=== PATIENT | male | born 1970 | race Caucasian/White ===

== ENCOUNTER 2017-10-19 19:54 | Observation (INO) | payer OTHER ==
[2017-10-19] MEDS ORDERED: Iohexol 350 MG/100 ML VIAL ONE (21:04)
[2017-10-19 22:31] VITALS: BMI 40.3
[2017-10-19] MEDS ORDERED: Labetalol 5 mg/ml Inj 20ML ONE (22:35)
[2017-10-19] MEDS ORDERED: Labetalol 5 mg/ml Inj 20ML IV STA (22:35)
[2017-10-19 22:52] LABS: INR 1.07 (0.93-1.08); PARTIAL THROMBOPLASTIN TIME 36.8 Seconds (25.1-36.5); PROTHROMBIN TIME 12.2 SECONDS (9.4-12.5)
[2017-10-19 22:53] LABS: BLOOD UREA NITROGEN 12 mg/dL (7-21); GFR AFRICAN-AMERICAN > 60; GFR NON-AFRICAN AMERICAN > 60
[2017-10-19 22:54] LABS: ALB/GLOB RATIO 1.4 (1.1-1.8); ALBUMIN 4.5 g/dL (3.0-4.8); ALT/SGPT 80 U/L (7-56); AST/SGOT 54 U/L (17-59); CALCIUM 9.3 mg/dL (8.4-10.5)
[2017-10-19 22:55] LABS: HEMOGLOBIN 15.4 g/dL (14.0-18.0); MEAN CELL VOLUME 86.9 fl (80.0-105.0); MEAN CORPUSCULAR HEMOGLOBIN 31.6 pg (25.0-35.0); MEAN CORPUSCULAR HGB CONC 36.3 g/dl (31.0-37.0); RBC 4.88 10^6/uL (3.5-6.1); TROPONIN I < 0.01 ng/mL; WHITE BLOOD COUNT 6.6 10^3/ul (4.5-11.0)
[2017-10-19 22:56] LABS: MEAN PLATELET VOLUME 10.5 fl (7.0-11.0); RED CELL DISTRIBUTION WIDTH 12.9 % (11.5-14.5)
[2017-10-19 23:04] LABS: URINE COLOR YELLOW (YELLOW)
[2017-10-19 23:05] LABS: PH,URINE 6.5 (4.7-8.0); URINE APPEARANCE CLEAR (CLEAR); URINE BILIRUBIN NEGATIVE (NEGATIVE); URINE BLOOD NEGATIVE (NEGATIVE); URINE GLUCOSE (UA) NEGATIVE (NEGATIVE); URINE LEUKOCYTE ESTERASE NEGATIVE Leu/uL (NEGATIVE); URINE PROTEIN NEGATIVE mg/dL (<30 mg/dL); URINE UROBILINOGEN 0.2 E.U./dL (<1 E.U./dL)
--- NOTE | 2017-10-20 00:40 | CP.PCM.HP ---
<Gallo Osei - Last Filed: 10/20/17 05:54> History of Present Illness - History of Present Illness History of Present Illness: This patient is a 46 year old with a PMHx of HLD, HTN, Anxiety, unspecified benign brain tumor (possible pituitary adenoma), and medication non-compliance who presents with what seems to be described as TIA symptoms. Patient states that around 7pm on 10/20/2017 he had a sudden onset of tightness from the neck, up. He states it felt like he had an "outer body experience" and like had been drinking. He also describes the feeling as if 100lbs was sitting at the top of his head. During this episode he states he was unable to talk and then when he gained his speech back, it was slurred. His speech deficit lasted for less than 5 minutes. He took 2 81mg aspirins, vitamins, and his anti-hypertensive medications and then called the ambulance himself. Patient is somewhat of a poor historian. Of note, patient states that for the past 7-8 years and 2-3x per year patient experiences episodes of sharp chest pain that resolves with aspirin. Today, patient denied any chest pain, palpitations, vision changes, headache, fever, chills, abdominal pain, nausea, vomiting, changes in bowel habits or urinary symptoms. Patient did admit to mild dizziness. ROS: As stated above. PMHx: HLD, HTN, Anxiety, unspecified benign brain tumor (possible pituitary adenoma), and medication non-compliance PSHx: Denies Allergies: Atenolol SocialHx: 1.5PPD for 31 years. Denies Alcohol or illicit drug use. Lives at home, unemployed, takes care of disabled child and Hos: Denies FamHx: Mother - Hypertension Meds: Reviewed Present on Admission - Present on Admission Any Indicators Present on Admission: No Review of Systems - Review of Systems All systems: reviewed and no additional remarkable complaints except (As per HPI ) Review of Systems: As per HPI Past Patient History - Tetanus Immunizations Tetanus Immunization: Unknown - Past Social History Smoking Status: Heavy Smoker > 10 Cigarettes Daily - CARDIAC Hx Hypertension: Yes - PULMONARY Hx Asthma: Yes Hx Sleep Apnea: Yes - NEUROLOGICAL Hx Migraine: Yes Hx Syncope: Yes - MUSCULOSKELETAL/RHEUMATOLOGICAL Hx Musculoskeletal Disorders: No - GASTROINTESTINAL Hx Gastrointestinal Disorders: No - GENITOURINARY/GYNECOLOGICAL Hx Genitourinary Disorders: No - PSYCHIATRIC Hx Psychophysiologic Disorder: No Hx Substance Use: No Meds Allergies/Adverse Reactions: Allergies Allergy/AdvReac Type Severity Reaction Status Date / Time atenolol Allergy SWELLING Verified 10/19/17 22:31 Physical Exam - Constitutional Appears: Well, Non-toxic, No Acute Distress - Head Exam Head Exam: ATRAUMATIC, NORMAL INSPECTION, NORMOCEPHALIC - Eye Exam Eye Exam: EOMI, Normal appearance, PERRL. absent: Scleral icterus - ENT Exam ENT Exam: Mucous Membranes Moist, Normal Oropharynx - Neck Exam Neck exam: Negative for: Lymphadenopathy, Thyromegaly - Respiratory Exam Respiratory Exam: Clear to Auscultation Bilateral, NORMAL BREATHING PATTERN - Cardiovascular Exam Cardiovascular Exam: RRR, +S1, +S2. absent: JVD - GI/Abdominal Exam GI & Abdominal Exam: Normal Bowel Sounds, Soft. absent: Organomegaly, Tenderness - Extremities Exam Extremities exam: Positive for: normal capillary refill, normal inspection, pedal pulses present. Negative for: pedal edema - Neurological Exam Neurological exam: Alert, CN II-XII Intact, Normal Gait, Oriented x3, Reflexes Normal Additional comments: No motor or sensory deficit. - Psychiatric Exam Psychiatric exam: Anxious - Skin Skin Exam: Dry, Intact, Normal Color, Warm Results - Labs Result Diagrams: 10/19/17 20:49 10/19/17 20:49 Labs: Laboratory Results - last 24 hr 10/19/17 10/19/17 10/19/17 20:49 20:49 20:49 WBC 6.6 RBC 4.88 Hgb 15.4 Hct 42.4 MCV 86.9 MCH 31.6 MCHC 36.3 RDW 12.9 Plt Count 180 MPV 10.5 PT 12.2 INR 1.07 APTT 36.8 H Sodium 142 Potassium 3.6 Chloride 103 Carbon Dioxide 25 Anion Gap 18 BUN 12 Creatinine 0.7 L Est GFR ( Amer) > 60 Est GFR (Non-Af Amer) > 60 Random Glucose 142 H Calcium 9.3 Total Bilirubin 0.3 AST 54 ALT 80 H Alkaline Phosphatase 67 Lactate Dehydrogenase 582 Total Creatine Kinase 155 Troponin I < 0.01 Total Protein 7.7 Albumin 4.5 Globulin 3.2 Albumin/Globulin Ratio 1.4 Urine Color Urine Appearance Urine pH Ur Specific [place] Urine Protein Urine Glucose (UA) Urine Ketones Urine Blood Urine Nitrate Urine Bilirubin Urine Urobilinogen Ur Leukocyte Esterase 10/19/17 20:49 WBC RBC Hgb Hct MCV MCH MCHC RDW Plt Count MPV PT INR APTT Sodium Potassium Chloride Carbon Dioxide Anion Gap BUN Creatinine Est GFR ( Amer) Est GFR (Non-Af Amer) Random Glucose Calcium Total Bilirubin AST ALT Alkaline Phosphatase Lactate Dehydrogenase Total Creatine Kinase Troponin I Total Protein Albumin Globulin Albumin/Globulin Ratio Urine Color Yellow Urine Appearance Clear Urine pH 6.5 Ur Specific [place] 1.010 Urine Protein Negative Urine Glucose (UA) Negative Urine Ketones Negative Urine Blood Negative Urine Nitrate Negative Urine Bilirubin Negative Urine Urobilinogen 0.2 Ur Leukocyte Esterase Negative Assessment & Plan - Assessment and Plan (Free Text) Assessment: 46 year old with a PMHx of HLD, HTN, Anxiety, unspecified benign brain tumor ( possible pituitary adenoma), and medication non-compliance admitted for evaluation and treatment of TIA Plan: TIA Code Stroke Called in the E.D during EMR Downtime. NIHSS stroke scale in ED [address] James at 20:32. CT of the head was negative. Neurology consulted by E.D physician and recommended aspirin and plavix which was given. Patient also got IV labetolol in ED. Neurology Consulted (Dr. Khoury) ECHO | Carotid Dopplers HgBA1C: PENDING Trop I - NEGATIVE Lipid Panel: Triglycerides - 515 | Cholesterol - 227 | LDL - 138 | HDL - 31 TSH/Free T4 - Within Normal Limits Low Fall Protocol Neuro Checks Q2H for 24 hours Seizure Precautions Swallow Eval ASA/Plavix Daily Stat Lipitor Hx of HTN Home Enalapril not in formulary Start Lisinopril 10 PO Daily Hx of HLD Home Gemfibrozil 600mg PO Daily Hx of unspecified tumor (Possibly pituitary adenoma) Patient has visit in EMR for Benign Neoplasm Head MRI/CT taken in the past shows no evidence of tumor. Patient's PMD should be called in AM. Proph Lovenox Protonix Patient seen and discussed with Attending Gallo Osei, PGY-1 - Date & Time Date: 10/19/17 Time: 11:50 NIHSS Scale (Isabela) Time Performed: 11:50 - How Severe is the Stoke Baseline Level of Consciousness: 0=Alert LOC to Questions: 0=Both comments correct LOC to commands: 0=Obeys both correctly Best Gaze: 0=Normal Visual: 0=No visual loss Facial: 0=Normal Motor Arm - Left: 0=No drift Motor Arm - Right: 0=No drift Motor Leg - Left: 0=No drift Motor Leg - Right: 0=No drift Limb Ataxia: 0=Absent Sensory: 0=Normal Best Language: 0=No aphasia Dysarthia: 0=Normal articulation Extinction & Inattention (Neglect): 0=Normal, no object Score: 0 Risk Level: No Stroke Risk <Breanna kAhtar - Last Filed: 10/20/17 06:49> Results - Vital Signs Recent Vital Signs: Last Vital Signs Temp Pulse 89 10/20/17 03:00 Resp 18 10/20/17 03:00 BP 132/90 10/20/17 03:00 Pulse Ox 100 10/20/17 03:00 - Labs Result Diagrams: 10/20/17 05:00 10/20/17 05:00 Labs: Laboratory Results - last 24 hr 10/20/17 10/20/17 05:00 05:00 WBC 9.5 D RBC 5.09 Hgb 16.0 Hct 44.6 MCV 87.6 MCH 31.4 MCHC 35.9 RDW 13.1 Plt Count 203 MPV 10.4 Gran % 62.2 Lymph % (Auto) 28.4 [place] % (Auto) 6.9 H Eos % (Auto) 2.3 Baso % (Auto) 0.2 Gran # 5.88 Lymph # (Auto) 2.7 [place] # (Auto) 0.7 H Eos # (Auto) 0.2 Baso # (Auto) 0.02 Sodium 144 Potassium 3.9 Chloride 104 Carbon Dioxide 25 Anion Gap 19 BUN 12 Creatinine 0.8 Est GFR ( Amer) > 60 Est GFR (Non-Af Amer) > 60 Random Glucose 94 Calcium 10.4 Total Bilirubin 0.4 AST 48 ALT 78 H Alkaline Phosphatase 77 Total Protein 7.7 Albumin 4.6 Globulin 3.1 Albumin/Globulin Ratio 1.5 Attending/Attestation - Attestation I have personally seen and examined this patient.: Yes I have fully participated in the care of the patient.: Yes I have reviewed all pertinent clinical information: Yes Notes (Text): 10/20/17 06:49 Agree with documentation and orders placed
[2017-10-20] MEDS ORDERED: Albuterol-Ipratrop 3 mg / 0.5 (3 ml) UD IH PRN (00:52)
[2017-10-20 01:43] LABS: HDL CHOLESTEROL 31 mg/dL (29-60)
[2017-10-20 01:53] LABS: LDL CHOLESTEROL 138 mg/dL (0-129)
[2017-10-20 02:18] LABS: FREE T4 1.16 ng/dL (0.78-2.19)
[2017-10-20 06:20] LABS: BASO # 0.02 K/mm3 (0.0-2.0); BASO % 0.2 % (0.0-3.0); EOS # 0.2 (0.0-0.7); EOS % 2.3 % (1.5-5.0); GRAN # 5.88 (1.4-6.5); GRAN % 62.2 % (50.0-68.0); LYMPH # 2.7 (1.2-3.4); LYMPH % 28.4 % (22.0-35.0); MEAN CELL VOLUME 87.6 fl (80.0-105.0); MEAN CORPUSCULAR HEMOGLOBIN 31.4 pg (25.0-35.0); MEAN CORPUSCULAR HGB CONC 35.9 g/dl (31.0-37.0); MEAN PLATELET VOLUME 10.4 fl (7.0-11.0); MONO # 0.7 (0.1-0.6); MONO % 6.9 % (1.0-6.0); RBC 5.09 10^6/uL (3.5-6.1); RED CELL DISTRIBUTION WIDTH 13.1 % (11.5-14.5); WHITE BLOOD COUNT 9.5 10^3/ul (4.5-11.0)
[2017-10-20 06:38] LABS: ALB/GLOB RATIO 1.5 (1.1-1.8); ALBUMIN 4.6 g/dL (3.0-4.8); ALT/SGPT 78 U/L (7-56); AST/SGOT 48 U/L (17-59); BLOOD UREA NITROGEN 12 mg/dL (7-21); CALCIUM 10.4 mg/dL (8.4-10.5); GFR AFRICAN-AMERICAN > 60; GFR NON-AFRICAN AMERICAN > 60
[2017-10-20] MEDS: Pantoprazole 40 mg EC Tab PO SCH (06:47)
--- NOTE | 2017-10-20 09:31 | CT ---
PROCEDURE: CT HEAD WITHOUT CONTRAST. HISTORY: WEAKNESS/POSSIBLE CVA COMPARISON: 05/17/14 TECHNIQUE: Axial computed tomography images were obtained through the head/brain without intravenous contrast. Radiation dose: Total exam DLP = mGy-cm. This CT exam was performed using one or more of the following dose reduction techniques: Automated exposure control, adjustment of the mA and/or kV according to patient size, and/or use of iterative reconstruction technique. FINDINGS: HEMORRHAGE: No intracranial hemorrhage. BRAIN: No mass effect or edema. No atrophy or chronic microvascular ischemic changes. VENTRICLES: Unremarkable. No hydrocephalus. CALVARIUM: Unremarkable. PARANASAL SINUSES: Unremarkable as visualized. No significant inflammatory changes. MASTOID AIR CELLS: Unremarkable as visualized. No inflammatory changes. OTHER FINDINGS: None. IMPRESSION: Normal CT of the Head.
[2017-10-20] MEDS: Enoxaparin 40 mg Syringe SC SCH (10:53)
--- NOTE | 2017-10-20 11:11 | CARD ---
APPROVED REPORT EKG Measurement Heart [id number] <Conclusion> Sinus tachycardia Possible Left atrial enlargement
--- NOTE | 2017-10-20 12:39 | CP.PCM.CON ---
<Gonzalo Bruno - Last Filed: 10/20/17 16:06> History of Present Illness - History of Present Illness History of Present Illness: Neurology Consult Note - Dr. Khoury CC: Difficulty speaking HPI: 46 M with a PMHx of sleep apnea, HTN, HLD, asthma, tobacco dependency, and medication non-compliance presented to the [facility] [place] with complaints of left facial droop and difficulty speaking. Pt stated that the evening of 10/19/17, he experienced a sudden onset of neck and head pressure/tightness and "out of body " sensation. He subsequently drank coffee with sugar thinking he had low blood sugar, and followed by a cigarrette. He then returned home still feeling unlike himself and while talking to his significant other noticed it was hard to speak and his spouse noted facial asymmetry (left facial droop) and slurred speech prompting him to seek medical attention. Pt also noted facial and perioral numbness and tingling predominately on the left side.Pt states that the duration of the episode was roughly 3-5 minutes. Pt took an extra dose of his aspirin followed by his regular medications, and called the ambulance. Of note, he takes his medications once every "couple of weeks". Pt Pt was seen and examined at bedside. patient denied any chest pain, palpitations, vision changes , fever, chills, abdominal pain, nausea, vomiting, changes in bowel habits or urinary symptoms. PMHx: HLD, HTN, Anxiety, unspecified benign brain tumor (possible pituitary adenoma), and medication non-compliance PSHx: Denies SHx: [id number] years. Denies Alcohol or illicit drug use. FamHx: HTN Meds: noncompliant Allergies: Atenolol Review of Systems - Review of Systems Review of Systems: as per HPI otherwise negative Past Patient History - Tetanus Immunizations Tetanus Immunization: Unknown - Past Social History Smoking Status: Heavy Smoker > 10 Cigarettes Daily - CARDIAC Hx Hypertension: Yes - PULMONARY Hx Asthma: Yes Hx Sleep Apnea: Yes - NEUROLOGICAL Hx Migraine: Yes - MUSCULOSKELETAL/RHEUMATOLOGICAL Hx Musculoskeletal Disorders: No Hx Falls: Yes - GASTROINTESTINAL Hx Gastrointestinal Disorders: No - GENITOURINARY/GYNECOLOGICAL Hx Genitourinary Disorders: No - PSYCHIATRIC Hx Psychophysiologic Disorder: No Hx Substance Use: No Meds Allergies/Adverse Reactions: Allergies Allergy/AdvReac Type Severity Reaction Status Date / Time atenolol Allergy SWELLING Verified 10/19/17 22:31 - Medications Medications: Current Medications Albuterol/Ipratropium (Duoneb 3 Mg/0.5 Mg (3 Ml) Ud) 3 ml IH Q4H PRN PRN Reason: Shortness of Breath Aspirin (Aspirin Chewable) 81 mg PO DAILY [facility] Last Admin: 10/20/17 10:52 Dose: 81 mg Clopidogrel Bisulfate (Plavix) 75 mg PO DAILY [facility] Last Admin: 10/20/17 10:53 Dose: 75 mg Enoxaparin Sodium (Lovenox) 40 mg SC DAILY [facility] PRN Reason: Protocol Last Admin: 10/20/17 10:53 Dose: 40 mg Gemfibrozil (Lopid) 600 mg PO DAILY [facility] Ibuprofen (Motrin Tab) 600 mg PO Q6H PRN PRN Reason: Pain, Moderate - Severe (4-10) Last Admin: 10/20/17 03:12 Dose: 600 mg Lisinopril (Zestril) 10 mg PO DAILY [facility] Last Admin: 10/20/17 10:53 Dose: 10 mg Pantoprazole Sodium (Protonix Ec Tab) 40 mg PO 0600 [facility] Last Admin: 10/20/17 06:47 Dose: 40 mg Physical Exam - Constitutional Appears: No Acute Distress - Head Exam Head Exam: ATRAUMATIC, NORMAL INSPECTION, NORMOCEPHALIC - Eye Exam Eye Exam: EOMI, Normal appearance, PERRL Pupil Exam: NORMAL ACCOMODATION, PERRL - ENT Exam ENT Exam: Mucous Membranes Moist, Normal Exam - Neck Exam Neck exam: Positive for: Normal Inspection - Respiratory Exam Respiratory Exam: Clear to Auscultation Bilateral, NORMAL BREATHING PATTERN - Cardiovascular Exam Cardiovascular Exam: REGULAR RHYTHM, +S1, +S2 - GI/Abdominal Exam GI & Abdominal Exam: Normal Bowel Sounds, Soft. absent: Tenderness - Extremities Exam Extremities exam: Positive for: normal inspection - Neurological Exam Neurological exam: Alert, CN II-XII Intact, Normal Gait, Oriented x3, Reflexes Normal - Expanded Neurological Exam Expanded Cranial nerves: EOM's Intact: Normal, Facial Palsey w/Forehead Movement: Normal , Facial Palsey w/o Forehead Movement: Normal, Facial Sensation: Normal, Gag Reflex: Normal, Nystagmus: Normal, Tongue Deviation: Normal Cerebellar Function: Finger to Nose: Normal, Heel to Jett: Normal, Romberg: Normal Upper motor neuron: Babinski Sign: Normal, Jesús Neglect: Normal, Pronator Drift : Normal, Sensory Extinction: Normal Sensory exam: Lower Extremity 2 Point Discrimination: Normal, Lower Extremity Light Touch: Normal, Lower Extremity Pin Prick: Normal, Lower Extremity Temperature: Normal, Upper Extremity 2 Point Discrimination: Normal, Upper Extremity Light Touch: Normal, Upper Extremity Pin Prick: Normal, Upper Extremity Temperature: Normal Neuro motor strength exam: Left Upper Extremity: 5, Right Upper Extremity: 5, Left Lower Extremity: 5, Right Lower Extremity: 5 DTR: Achilles Tendon Left: 2+, Achilles Tendon Right: 2+, Bicep Left: 2+, Bicep Right: 2+, Brachioradialis Left: 2+, Brachioradialis Right: 2+, Patellar Left: 2 +, Patellar Right: 2+, Tricep Left: 2+, Tricep Right: 2+ Coma Scale Eye Opening: SPONTANEOUS Coma Scale Motor Response: OBEYS COMMANDS Coma Scale Verbal: Oriented Coma Scale Total: 15 - Psychiatric Exam Psychiatric exam: Normal Affect, Normal Mood - Skin Skin Exam: Dry, Intact, Normal Color, Warm Results - Vital Signs Recent Vital Signs: Last Vital Signs Temp 98.2 F 10/20/17 11:10 Pulse 78 10/20/17 11:10 Resp 19 10/20/17 11:10 BP 147/97 H 10/20/17 11:10 Pulse Ox 99 10/20/17 11:00 - Labs Result Diagrams: 10/20/17 05:00 10/20/17 05:00 Labs: Laboratory Results - last 24 hr 10/20/17 10/20/17 05:00 05:00 WBC 9.5 D RBC 5.09 Hgb 16.0 Hct 44.6 MCV 87.6 MCH 31.4 MCHC 35.9 RDW 13.1 Plt Count 203 MPV 10.4 Gran % 62.2 Lymph % (Auto) 28.4 [place] % (Auto) 6.9 H Eos % (Auto) 2.3 Baso % (Auto) 0.2 Gran # 5.88 Lymph # (Auto) 2.7 [place] # (Auto) 0.7 H Eos # (Auto) 0.2 Baso # (Auto) 0.02 Sodium 144 Potassium 3.9 Chloride 104 Carbon Dioxide 25 Anion Gap 19 BUN 12 Creatinine 0.8 Est GFR ( Amer) > 60 Est GFR (Non-Af Amer) > 60 Random Glucose 94 Calcium 10.4 Total Bilirubin 0.4 AST 48 ALT 78 H Alkaline Phosphatase 77 Total Protein 7.7 Albumin 4.6 Globulin 3.1 Albumin/Globulin Ratio 1.5 Assessment & Plan - Assessment and Plan (Free Text) Assessment: 46 M with a PMHx of sleep apnea, HTN, HLD, asthma, tobacco dependency, and medication non-compliance presented to the [facility] ED with complaints of facial asymmetry and difficulty speaking likely with TIA. CTH was found to be negative , CTA head and neck was negative, Carotid dopplers results pending. Pt lipid panel elevated, lopid and lipitor started. Recommend asa/plavix, continue anti- htn, counselled pt on medication compliance and tobacco cessation. Passed swallow study, Heart healthy diet, PT/OT. Upon discharge can continue dual anti- plt for 21 days. <Lazaro Khoury - Last Filed: 10/20/17 17:31> Meds - Medications Medications: Current Medications Albuterol/Ipratropium (Duoneb 3 Mg/0.5 Mg (3 Ml) Ud) 3 ml IH Q4H PRN PRN Reason: Shortness of Breath Aspirin (Aspirin Chewable) 81 mg PO DAILY [facility] Last Admin: 10/20/17 10:52 Dose: 81 mg Atorvastatin Calcium (Lipitor) 40 mg PO DIN [facility] Clopidogrel Bisulfate (Plavix) 75 mg PO DAILY [facility] Last Admin: 10/20/17 10:53 Dose: 75 mg Enoxaparin Sodium (Lovenox) 40 mg SC DAILY [facility] PRN Reason: Protocol Last Admin: 10/20/17 10:53 Dose: 40 mg Gemfibrozil (Lopid) 600 mg PO DAILY [facility] Magnesium Sulfate 2 gm/ Sodium (Chloride) 104 mls @ 102 mls/hr IVPB ONCE ONE Stop: 10/20/17 17:50 Ibuprofen (Motrin Tab) 600 mg PO Q6H PRN PRN Reason: Pain, Moderate - Severe (4-10) Last Admin: 10/20/17 15:54 Dose: 600 mg Lisinopril (Zestril) 10 mg PO DAILY [facility] Last Admin: 10/20/17 10:53 Dose: 10 mg Pantoprazole Sodium (Protonix Ec Tab) 40 mg PO 0600 [facility] Last Admin: 10/20/17 06:47 Dose: 40 mg Results - Vital Signs Recent Vital Signs: Last Vital Signs Temp 98 F 10/20/17 12:00 Pulse 88 10/20/17 12:00 Resp 20 10/20/17 12:00 BP 150/90 10/20/17 15:34 Pulse Ox 95 10/20/17 12:00 - Labs Result Diagrams: 10/20/17 05:00 10/20/17 05:00 Attending/Attestation - Attestation I have personally seen and examined this patient.: Yes I have fully participated in the care of the patient.: Yes I have reviewed all pertinent clinical information: Yes
--- NOTE | 2017-10-20 12:49 | CP.PCM.PN ---
"<Neal Collins - Last Filed: 10/20/17 12:29> Subjective - Date & Time of Evaluation Date of Evaluation: 10/20/17 Time of Evaluation: 08:50 - Subjective Subjective: Subjective: Patient seen and examined at bedside. Resting comfortably in bed. No acute overnight events. Patient states admitting symptoms have resolved. Offers no new complaints at this time. Denies fever, chills, chest pain, shortness of breath, abdominal pain, nausea, vomiting, diarrhea, constipation, and urinary symptoms. 12-point review of systems negative except as indicated in the HPI Physical Examination: - Constitutional Appears: Well, Non-toxic, No Acute Distress - Head Exam Head Exam: ATRAUMATIC, NORMAL INSPECTION, NORMOCEPHALIC - Eye Exam Eye Exam: EOMI, Normal appearance, PERRL. absent: Scleral icterus - ENT Exam ENT Exam: Mucous Membranes Moist, Normal Oropharynx - Neck Exam Neck exam: Negative for: Lymphadenopathy, Thyromegaly - Respiratory Exam Respiratory Exam: Clear to Auscultation Bilateral, NORMAL BREATHING PATTERN - Cardiovascular Exam Cardiovascular Exam: RRR, +S1, +S2. absent: JVD - GI/Abdominal Exam GI & Abdominal Exam: Normal Bowel Sounds, Soft. absent: Organomegaly, Tenderness - Extremities Exam Extremities exam: Positive for: normal capillary refill, normal inspection, pedal pulses present. Negative for: pedal edema - Neurological Exam Neurological exam: Patient is awake, alert, responds to verbal stimuli, answers questions appropriately, follows commands, and moves extremities past midline - Psychiatric Exam Psychiatric exam: Anxious - Skin Skin Exam: Dry, Intact, Normal Color, Warm Assessment and Plan: Patient is a 46 year old male with a PMHx of HLD, HTN, Anxiety, unspecified benign brain tumor (possible pituitary adenoma), and medication non-compliance who was admitted for evaluation and treatment of TIA. TIA - Neurology Consulted (Dr. Khoury)- appreciate recommendations - ECHO and Carotid Dopplers ordered and pending - head and neck CTA ordered and pending - HgBA1C: 5.7 - Trop I - NEGATIVE - Lipid Panel: Triglycerides - 515 | Cholesterol - 227 | LDL - 138 | HDL - 31- starting patient on liptor 40mg - TSH/Free T4 - Within Normal Limits - Low Fall Protocol - Neuro Checks Q2H for 24 hours - Seizure Precautions - ASA/Plavix Daily - started lipitor 40mg PO daily Hx of HTN - blood pressure reviewed, trended, and appreciated- 140s/90s - Home Enalapril not in formulary - Start Lisinopril 10 PO Daily Hx of HLD - started patient on lipitor 40mg PO daily - Home Gemfibrozil 600mg PO Daily Hx of unspecified tumor (Possibly pituitary adenoma) - head CT 10/19/17- Normal CT of the Head Prophylaxis - DVT ppx Lovenox - GI ppx Protonix Patient seen, case discussed with, and plan approved by attending physician, Dr. Bosch Objective - Vital Signs/Intake and Output Vital Signs (last 24 hours): Temp Pulse Resp BP Pulse Ox 98.2 F 78 19 147/97 H 99 10/20/17 11:10 10/20/17 11:10 10/20/17 11:10 10/20/17 11:10 10/20/17 11:00 - Medications Medications: Current Medications Albuterol/Ipratropium (Duoneb 3 Mg/0.5 Mg (3 Ml) Ud) 3 ml IH Q4H PRN PRN Reason: Shortness of Breath Aspirin (Aspirin Chewable) 81 mg PO DAILY [facility] Last Admin: 10/20/17 10:52 Dose: 81 mg Clopidogrel Bisulfate (Plavix) 75 mg PO DAILY [facility] Last Admin: 10/20/17 10:53 Dose: 75 mg Enoxaparin Sodium (Lovenox) 40 mg SC DAILY [facility] PRN Reason: Protocol Last Admin: 10/20/17 10:53 Dose: 40 mg Gemfibrozil (Lopid) 600 mg PO DAILY [facility] Ibuprofen (Motrin Tab) 600 mg PO Q6H PRN PRN Reason: Pain, Moderate - Severe (4-10) Last Admin: 10/20/17 03:12 Dose: 600 mg Lisinopril (Zestril) 10 mg PO DAILY [facility] Last Admin: 10/20/17 10:53 Dose: 10 mg Pantoprazole Sodium (Protonix Ec Tab) 40 mg PO 0600 [facility] Last Admin: 10/20/17 06:47 Dose: 40 mg - Labs Labs: 10/20/17 05:00 10/20/17 05:00 PT 12.2 SECONDS (9.4-12.5) 10/19/17 20:49 INR 1.07 (0.93-1.08) 10/19/17 20:49 APTT 36.8 Seconds (25.1-36.5) H 10/19/17 20:49 <Winnie Butcher - Last Filed: 10/21/17 17:02> Objective - Vital Signs/Intake and Output Vital Signs (last 24 hours): Temp Pulse Resp BP Pulse Ox 97.8 F 89 20 122/84 96 10/21/17 08:25 10/21/17 10:08 10/21/17 08:25 10/21/17 10:08 10/21/17 08:25 Intake and Output: 10/21/17 10/21/17 06:59 18:59 Intake Total 1430 420 Output Total 700 Balance 730 420 - Medications Medications: Current Medications Albuterol/Ipratropium (Duoneb 3 Mg/0.5 Mg (3 Ml) Ud) 3 ml IH Q4H PRN PRN Reason: Shortness of Breath Aspirin (Aspirin Chewable) 81 mg PO DAILY [facility] Last Admin: 10/21/17 10:08 Dose: 81 mg Atorvastatin Calcium (Lipitor) 40 mg PO DIN [facility] Last Admin: 10/21/17 16:51 Dose: 40 mg Clopidogrel Bisulfate (Plavix) 75 mg PO DAILY [facility] Last Admin: 10/21/17 10:08 Dose: 75 mg Enoxaparin Sodium (Lovenox) 40 mg SC DAILY [facility] PRN Reason: Protocol Last Admin: 10/21/17 11:31 Dose: 40 mg Ibuprofen (Motrin Tab) 600 mg PO Q6H PRN PRN Reason: Pain, Moderate - Severe (4-10) Last Admin: 10/21/17 02:33 Dose: 600 mg Lisinopril (Zestril) 10 mg PO DAILY [facility] Last Admin: 10/21/17 10:08 Dose: 10 mg Pantoprazole Sodium (Protonix Ec Tab) 40 mg PO 0600 [facility] Last Admin: 10/21/17 05:21 Dose: 40 mg - Labs Labs: 10/21/17 06:45 PT 12.2 SECONDS (9.4-12.5) 10/19/17 20:49 INR 1.07 (0.93-1.08) 10/19/17 20:49 APTT 36.8 Seconds (25.1-36.5) H 10/19/17 20:49 Attending/Attestation - Attestation I have personally seen and examined this patient.: Yes I have fully participated in the care of the patient.: Yes I have reviewed all pertinent clinical information, including history, physical exam and plan: Yes Notes (Text): I have seen and examined the patient at bedside. Agree with the above note with the following additions/ exceptions: Briefly this is 46 year old male with history of HTN, dyslipidemia, anxiety and medication non compliance who was admitted for TIA. CT head negative. Work up pending. Resume home medications. Upon discharge patient will follow up with Dr James Donohue."
[2017-10-20 12:50] VITALS: RESP 20
--- NOTE | 2017-10-20 15:47 | US ---
PROCEDURE: Bilateral carotid artery duplex ultrasound HISTORY: Carotid stenosis TIA PHYSICIAN(S): Raheem Hayes MD. TECHNIQUE: Duplex sonography and color-flow Doppler were used to evaluate the carotid bifurcations and limited segments of the vertebral arteries bilaterally. FINDINGS: There is mild intimal- medial thickening noted at the carotid bifurcations bilaterally. The peak systolic velocity in the proximal right internal carotid artery is 69 cm/sec. This corresponds to a 0-19 percent proximal right ICA stenosis. Normal systolic velocities are noted in the proximal right external carotid artery. There is antegrade flow in the small right vertebral artery. The peak systolic velocity in the proximal left internal carotid artery is 59 cm/sec. This corresponds to a 0-19 percent proximal left ICA stenosis. Normal systolic velocities are noted in the proximal left external carotid artery. There is antegrade flow in the dominant left vertebral artery. IMPRESSION: 1. Bilateral 0-19 percent proximal ICA stenoses. 2. Antegrade flow in both vertebral arteries.
[2017-10-20] MEDS ORDERED: Magnesium Sulfate 2 GM in Sodium Chloride 0.9% 100 ML IVPB ONE (16:49)
[2017-10-20] MEDS ORDERED: Divalproex 500 mg ER (ONCE DAILY formulation) PO ONE (16:50)
--- NOTE | 2017-10-20 18:04 | CT ---
PROCEDURE: CT Angiography of the Brain. HISTORY: WEAKNESS/POSSIBLE CVA COMPARISON: None available. TECHNIQUE: CT angiography of the intracranial and cervical arteries was performed. Coronal and sagittal maximum intensity projection reformatted images were generated. Contrast Dose: Omnipaque 350, 100 cc Radiation dose:Total exam DLP = 773.82 mGy-cm. This CT exam was performed using one or more of the following dose reduction techniques: Automated exposure control, adjustment of the mA and/or kV according to patient size, and/or use of iterative reconstruction technique. FINDINGS: Study is somewhat limited in overall arterial enhancement venous enhancement greater than arterial overall. INTERNAL CEREBRAL ARTERIES: The skull base, petrous, cavernous and supraclinoid segments are bilaterally appear patent. ANTERIOR CEREBRAL ARTERIES: A1 and A2 segments are patent. Smaller distal branches unremarkable, as visualized. MIDDLE CEREBRAL ARTERIES: M1 and M2 segments are widely patent. Perisylvian branches grossly symmetric. POSTERIOR CIRCULATION: Basilar Artery: Patent. Distal Vertebral Arteries: Patent. Posterior Cerebral Arteries: Patent. Posterior Inferior Cerebellar Arteries: Unremarkable. NECK CTA: Common Carotid arteries: The bilateral common carotid appear patent from their origins to their bifurcations with no significant stenosis appreciated. Internal Carotid arteries: No significant stenosis is appreciated throughout the cervical internal carotid artery segments bilaterally. External Carotid arteries: Appear unremarkable bilaterally. Vertebral arteries: The bilateral vertebral arteries appear patent from their origins to their junction with the basilar artery. No significant stenosis or definite pattern of dissection. ANEURYSM/ VASCULAR MALFORMATIONS: None. OTHER FINDINGS: None. IMPRESSION: Limited CT Angiography of the Brain and neck as discussed above. The bilateral common and internal carotid arteries appear patent without gross stenosis and central rosebud Boyce anatomy is patent as well. Arterial contrast-enhancement overall is somewhat limited. Findings discussed with Dr. Lakhani 10/15/2017 10:30 p.m. with written down and read back verification.
--- NOTE | 2017-10-20 18:23 | CARD ---
APPROVED REPORT EKG Measurement Heart [id number] <Conclusion> Normal sinus rhythm Normal ECG
[2017-10-21] MEDS: Pantoprazole 40 mg EC Tab PO SCH (05:21)
--- NOTE | 2017-10-21 07:33 | CP.PCM.PN ---
Subjective - Date & Time of Evaluation Date of Evaluation: 10/21/17 Time of Evaluation: 06:40 - Subjective Subjective: I feel okay, have moderate headache, denies chest pain,denies shortness of breath Reason for consult and follow up: TIA, hypertension, high cholesterol,obese, tobacco abuse Seen and examined by me and Dr. Cardoso Objective - Vital Signs/Intake and Output Vital Signs (last 24 hours): Temp Pulse Resp BP Pulse Ox 98.7 F 83 20 150/90 97 10/20/17 16:00 10/21/17 05:52 10/20/17 16:00 10/20/17 16:00 10/20/17 16:00 Intake and Output: 10/21/17 10/21/17 06:59 18:59 Intake Total 1430 Output Total 700 Balance 730 - Medications Medications: Current Medications Albuterol/Ipratropium (Duoneb 3 Mg/0.5 Mg (3 Ml) Ud) 3 ml IH Q4H PRN PRN Reason: Shortness of Breath Aspirin (Aspirin Chewable) 81 mg PO DAILY [facility] Last Admin: 10/20/17 10:52 Dose: 81 mg Atorvastatin Calcium (Lipitor) 40 mg PO DIN [facility] Clopidogrel Bisulfate (Plavix) 75 mg PO DAILY [facility] Last Admin: 10/20/17 10:53 Dose: 75 mg Enoxaparin Sodium (Lovenox) 40 mg SC DAILY [facility] PRN Reason: Protocol Last Admin: 10/20/17 10:53 Dose: 40 mg Gemfibrozil (Lopid) 600 mg PO DAILY [facility] Ibuprofen (Motrin Tab) 600 mg PO Q6H PRN PRN Reason: Pain, Moderate - Severe (4-10) Last Admin: 10/21/17 02:33 Dose: 600 mg Lisinopril (Zestril) 10 mg PO DAILY [facility] Last Admin: 10/20/17 10:53 Dose: 10 mg Pantoprazole Sodium (Protonix Ec Tab) 40 mg PO 0600 [facility] Last Admin: 10/21/17 05:21 Dose: 40 mg - Labs Labs: PT 12.2 SECONDS (9.4-12.5) 10/19/17 20:49 INR 1.07 (0.93-1.08) 10/19/17 20:49 APTT 36.8 Seconds (25.1-36.5) H 10/19/17 20:49 - Constitutional Appears: Well, No Acute Distress - Head Exam Head Exam: NORMAL INSPECTION, NORMOCEPHALIC - Eye Exam Eye Exam: Normal appearance Pupil Exam: NORMAL ACCOMODATION - ENT Exam ENT Exam: Mucous Membranes Moist - Neck Exam Neck Exam: Normal Inspection - Respiratory Exam Respiratory Exam: Clear to Ausculation Bilateral, NORMAL BREATHING PATTERN - Cardiovascular Exam Cardiovascular Exam: REGULAR RHYTHM, +S1, +S2 Additional comments: normal sinus rythm - GI/Abdominal Exam GI & Abdominal Exam: Soft, Normal Bowel Sounds Additional comments: hematoma on mid lower abdomen probably due to injection site - Extremities Exam Extremities Exam: Full ROM, Normal Capillary Refill - Neurological Exam Neurological Exam: Alert, Awake, Oriented x3 - Psychiatric Exam Psychiatric exam: Normal Affect, Normal Mood - Skin Skin Exam: Intact, Normal Color, Warm Assessment and Plan - Assessment and Plan (Free Text) Assessment: IMPRESSION: A 46 year old male,obese who came to the ER due to left facial droop and difficulty speaking. He also experienced left arm numbness and perioral numbness which lasted 3-5 minutes. He had also history of hypertension and hypercholesterolemia. non compliant with medications. 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 Denies alcohol abuse and illicit drugs. Plan: EKG done- Normal sinus rythm ECHO done-pending final report CT of head -negative for bleeding Carotid studies-minimal disease Cardiac work up as out patient Stress test as out patient Diet and lifestyle modifications Smoking cessation Started on Lipitor 40 mg daily and Lopid 600 mg daily for high cholesterol and triglycerides On Lisinopril 10 mg daily, ASA 81 mg daily,Plavix 75 mg daily For brain MRI today As per patient, possible discharge today Follow up in office 1-2 weeks Will follow up Plan and treatment discussed with Dr. Cardoso
[2017-10-21 07:39] LABS: ALB/GLOB RATIO 1.5 (1.1-1.8); ALBUMIN 4.7 g/dL (3.0-4.8); ALT/SGPT 67 U/L (7-56); AST/SGOT 43 U/L (17-59); BLOOD UREA NITROGEN 18 mg/dL (7-21); CALCIUM 9.8 mg/dL (8.4-10.5); GFR AFRICAN-AMERICAN > 60; GFR NON-AFRICAN AMERICAN > 60
[2017-10-21 08:25] VITALS: TEMP 97.8; O2SAT 96
--- NOTE | 2017-10-21 08:46 | CON ---
DATE: 10/20/2017 LOCATION: The patient is in room 372, bed 2. REASON FOR CONSULTATION: TIA, atypical chest pain, hypertension, hyperlipidemia. HISTORY OF PRESENT ILLNESS: The patient is a 46-year-old male, who is known hypertensive and high cholesterol for about 25 years, but does not take medicine. He also known to have sleep apnea, asthma, sometime he takes albuterol inhalations. He was admitted to the hospital with slurring of speech and angle of the mouth drawn towards the left side, which lasted temporarily for a few minutes only. The patient gives history of very vague aches and pain type of chest pain sometime in different locations in the chest, not related to position and the pain is very short lived. Denies any nausea, vomiting, hematemesis or melena. Denies any chest pain on exertion. This chest pain has been also happening for the longtime. He also feel sharp pain off and on in the middle of the chest on a localized point. PAST MEDICAL HISTORY: Positive for hypertension, high cholesterol, asthma, anxiety, sleep apnea, panic attacks. He has been on Xanax 0.5 mg four times a day for many years. PERSONAL HISTORY: Smokes 2 packs a day. Denies drinking. ALLERGIES: HE STATES THAT WITH ATENOLOL, HE COULD NOT BREATHE; SO, HE SAYS THAT HE IS ALLERGIC TO ATENOLOL. FAMILY HISTORY: Mother side and uncle side, they all have coronary artery disease. PHYSICAL EXAMINATION: VITAL SIGNS: Blood pressure 142/90, respirations 20, pulse 88, temperature 98. HEENT: Head is normocephalic. Eyes: Pupils normal, conjunctivae normal. Nose and throat normal. NECK: JVP low. Carotids equal. THORAX: AP diameter normal. LUNGS: Clear. CARDIOVASCULAR: S1 and S2. ABDOMEN: Soft. No tenderness. No organomegaly. Bowel sounds normal. EXTREMITIES: No clubbing. No cyanosis. LABORATORY DATA: WBC 9.5, hemoglobin 13, hematocrit 44.6, platelet 203. Sodium 144, potassium 3.9, BUN 12, creatinine 0.8. Random sugar 94. AST, ALT normal. Total protein and albumin normal. Triglyceride 515, cholesterol 227, LDL 138, HDL 31. TSH is 1.12. EKG showed normal sinus rhythm, 77 per minute. CAT scan of the head: Normal CAT scan of the head was reported. The patient has CT of the head and neck, report is pending. Carotid ultrasound was done, report is pending. Echo has been ordered already. DIAGNOSES: Slurring of speech and twisting of the mouth, probably transient ischemic attack; hypertension; hyperlipidemia including high cholesterol and high triglyceride; sleep apnea; history of asthma; history of anxiety; panic attacks; chest pain is atypical; tobacco abuse; obesity. PLAN: The patient's echo is pending. The patient is already on aspirin 81 mg daily; Lipitor has been started 40 mg daily; gemfibrozil 600 mg p.o. daily; Lovenox 40 mg subcu daily; Plavix 300 mg stat was given, then he is on 75 mg p.o. daily; Protonix 40 daily; lisinopril 10 daily; the patient received labetalol IV 10 mg stat in the emergency room for high blood pressure. I advised patient stop smoking and lose weight and follow the medications regularly. We will follow the carotid ultrasound report and echocardiogram when it is done and when patient clinically stabilized, he will have stress test for the atypical chest pain, which does not sound like cardiac at this point that can be also done as an outpatient. So, we will continue medication and we will monitor with you and we will follow with you. Ag Trent MD
[2017-10-21] MEDS: Enoxaparin 40 mg Syringe SC SCH ×3 (10:08→11:31)
[2017-10-21 10:13] VITALS: BP 122/84
[2017-10-21] MEDS ORDERED: Gadodiamide 287 MG/ML VIAL (20ML) IV ONE (10:33)
--- NOTE | 2017-10-21 11:38 | MRI ---
PROCEDURE: MRI BRAIN WITH AND WITHOUT CONTRAST HISTORY: tia/cva COMPARISON: MRI 12/05/2015 TECHNIQUE: Multiplanar, multisequence MR images of the brain were obtained with and without intravenous contrast enhancement. 20 cc of Omniscan FINDINGS: HEMORRHAGE: None DWI: No evidence of an acute or early subacute infarction. BRAIN PARENCHYMA: No mass,mass effect or edema. No atrophy or chronic microvascular ischemic changes. ENHANCEMENT: No abnormal intracranial enhancement. VENTRICLES: Unremarkable. No hydrocephalus. CRANIUM: Unremarkable. ORBITS: Grossly unremarkable. PARANASAL SINUSES/MASTOIDS: Clear VASCULAR SYSTEM: Skull base flow voids intact. OTHER FINDINGS: None . IMPRESSION: Unremarkable pre and post contrast enhanced MRI of the brain.
--- NOTE | 2017-10-21 12:10 | CP.PCM.PN ---
"Subjective - Date & Time of Evaluation Date of Evaluation: 10/21/17 Time of Evaluation: 10:30 - Subjective Subjective: Subjective: Patient seen and examined.No acute overnight events. Patient states admitting symptoms have resolved. Admits to baseline headache. Offers no new complaints at this time. Denies fever, chills, chest pain, shortness of breath, abdominal pain, nausea, vomiting, diarrhea, constipation, and urinary symptoms. 12-point review of systems negative except as indicated in the HPI Physical Examination: - Constitutional Appears: Well, Non-toxic, No Acute Distress - Head Exam Head Exam: ATRAUMATIC, NORMAL INSPECTION, NORMOCEPHALIC - Eye Exam Eye Exam: EOMI, Normal appearance, PERRL. absent: Scleral icterus - ENT Exam ENT Exam: Mucous Membranes Moist, Normal Oropharynx - Neck Exam Neck exam: Negative for: Lymphadenopathy, Thyromegaly - Respiratory Exam Respiratory Exam: Clear to Auscultation Bilateral, NORMAL BREATHING PATTERN - Cardiovascular Exam Cardiovascular Exam: RRR, +S1, +S2. absent: JVD - GI/Abdominal Exam GI & Abdominal Exam: Normal Bowel Sounds, Soft. absent: Organomegaly, Tenderness - Extremities Exam Extremities exam: Positive for: normal capillary refill, normal inspection, pedal pulses present. Negative for: pedal edema - Neurological Exam Neurological exam: Patient is awake, alert, responds to verbal stimuli, answers questions appropriately, follows commands, and moves extremities past midline - Psychiatric Exam Psychiatric exam: Anxious - Skin Skin Exam: Dry, Intact, Normal Color, Warm Assessment and Plan: Patient is a 46 year old male with a PMHx of HLD, HTN, Anxiety, unspecified benign brain tumor (possible pituitary adenoma), and medication non-compliance who was admitted for evaluation and treatment of TIA. TIA - Neurology Consulted (Dr. Khoury)- Upon discharge can continue dual anti-plt for 21 days, decadron, depakote, and mag given x 1 - ECHO - - Carotid Dopplers- Bilateral 0-19 percent proximal ICA stenoses. Antegrade flow in both vertebral arteries. - Head and neck CTA - limited CT Angiography of the brain and neck. The bilateral common and internal carotid arteries appear patent without gross stenosis and central sokaogon Boyce anatomy is patent as well. Arterial contrast- enhancement overall is somewhat limited - MRI of brain without contrast- Unremarkable pre and post contrast enhanced MRI of the brain - HgBA1C: 5.7 - Trop I - NEGATIVE - Lipid Panel: Triglycerides - 515 | Cholesterol - 227 | LDL - 138 | HDL - 31- c /w liptor 40mg - TSH/Free T4 - Within Normal Limits - Low Fall Protocol - Neuro Checks Q2H for 24 hours - Seizure Precautions - ASA/Plavix Daily Hx of HTN - blood pressure reviewed, trended, and appreciated- 140s/90s - Home Enalapril not in formulary - Start Lisinopril 10 PO Daily Hx of HLD - started patient on lipitor 40mg PO daily - Home Gemfibrozil 600mg PO Daily Hx of unspecified tumor (Possibly pituitary adenoma) - head CT 10/19/17- Normal CT of the Head Prophylaxis - DVT ppx Lovenox - GI ppx Protonix Patient seen, case discussed with, and plan approved by attending physician, Dr. Butcher Objective - Vital Signs/Intake and Output Vital Signs (last 24 hours): Temp Pulse Resp BP Pulse Ox 97.8 F 89 20 122/84 96 10/21/17 08:25 10/21/17 10:08 10/21/17 08:25 10/21/17 10:08 10/21/17 08:25 Intake and Output: 10/21/17 10/21/17 06:59 18:59 Intake Total 1430 Output Total 700 Balance 730 - Medications Medications: Current Medications Albuterol/Ipratropium (Duoneb 3 Mg/0.5 Mg (3 Ml) Ud) 3 ml IH Q4H PRN PRN Reason: Shortness of Breath Aspirin (Aspirin Chewable) 81 mg PO DAILY [facility] Last Admin: 10/21/17 10:08 Dose: 81 mg Atorvastatin Calcium (Lipitor) 40 mg PO DIN [facility] Clopidogrel Bisulfate (Plavix) 75 mg PO DAILY [facility] Last Admin: 10/21/17 10:08 Dose: 75 mg Enoxaparin Sodium (Lovenox) 40 mg SC DAILY [facility] PRN Reason: Protocol Last Admin: 10/21/17 11:31 Dose: 40 mg Ibuprofen (Motrin Tab) 600 mg PO Q6H PRN PRN Reason: Pain, Moderate - Severe (4-10) Last Admin: 10/21/17 02:33 Dose: 600 mg Lisinopril (Zestril) 10 mg PO DAILY [facility] Last Admin: 10/21/17 10:08 Dose: 10 mg Pantoprazole Sodium (Protonix Ec Tab) 40 mg PO 0600 [facility] Last Admin: 10/21/17 05:21 Dose: 40 mg - Labs Labs: 10/21/17 06:45 PT 12.2 SECONDS (9.4-12.5) 10/19/17 20:49 INR 1.07 (0.93-1.08) 10/19/17 20:49 APTT 36.8 Seconds (25.1-36.5) H 10/19/17 20:49"
--- NOTE | 2017-10-21 13:09 | CP.PCM.DIS ---
<Neal Collins - Last Filed: 10/22/17 15:04> Provider - Provider Date of Admission: 10/20/17 12:29 Attending physician: Winnie Butcher MD Primary care physician: Jayde Ramirez DO Time Spent in preparation of Discharge (in minutes): 45 Diagnosis - Discharge Diagnosis (1) TIA (transient ischemic attack) Status: Resolved Priority: Medium (2) Hypertension Status: Chronic Priority: Medium (3) Hyperlipidemia Status: Chronic Priority: Medium (4) Anxiety Status: Chronic Priority: Medium (5) Headache Status: Chronic Priority: Medium Hospital Course - Lab Results Lab Results: Most Recent Lab Values WBC 9.5 10^3/ul (4.5-11.0) D 10/20/17 05:00 RBC 5.09 10^6/uL (3.5-6.1) 10/20/17 05:00 Hgb 16.0 g/dL (14.0-18.0) 10/20/17 05:00 Hct 44.6 % (42.0-52.0) 10/20/17 05:00 MCV 87.6 fl (80.0-105.0) 10/20/17 05:00 MCH 31.4 pg (25.0-35.0) 10/20/17 05:00 MCHC 35.9 g/dl (31.0-37.0) 10/20/17 05:00 RDW 13.1 % (11.5-14.5) 10/20/17 05:00 Plt Count 203 10^3/uL (120.0-450.0) 10/20/17 05:00 MPV 10.4 fl (7.0-11.0) 10/20/17 05:00 Gran % 62.2 % (50.0-68.0) 10/20/17 05:00 Lymph % (Auto) 28.4 % (22.0-35.0) 10/20/17 05:00 Greene % (Auto) 6.9 % (1.0-6.0) H 10/20/17 05:00 Eos % (Auto) 2.3 % (1.5-5.0) 10/20/17 05:00 Baso % (Auto) 0.2 % (0.0-3.0) 10/20/17 05:00 Gran # 5.88 (1.4-6.5) 10/20/17 05:00 Lymph # (Auto) 2.7 (1.2-3.4) 10/20/17 05:00 Greene # (Auto) 0.7 (0.1-0.6) H 10/20/17 05:00 Eos # (Auto) 0.2 (0.0-0.7) 10/20/17 05:00 Baso # (Auto) 0.02 K/mm3 (0.0-2.0) 10/20/17 05:00 PT 12.2 SECONDS (9.4-12.5) 10/19/17 20:49 INR 1.07 (0.93-1.08) 10/19/17 20:49 APTT 36.8 Seconds (25.1-36.5) H 10/19/17 20:49 Sodium 140 mmol/L (132-148) 10/21/17 06:45 Potassium 4.2 mmol/L (3.6-5.0) 10/21/17 06:45 Chloride 101 mmol/L (98-107) 10/21/17 06:45 Carbon Dioxide 24 mmol/L (21-33) 10/21/17 06:45 Anion Gap 20 (10-20) 10/21/17 06:45 BUN 18 mg/dL (7-21) 10/21/17 06:45 Creatinine 0.8 mg/dl (0.8-1.5) 10/21/17 06:45 Est GFR ( Amer) > 60 10/21/17 06:45 Est GFR (Non-Af Amer) > 60 10/21/17 06:45 Random Glucose 129 mg/dL (70-110) H 10/21/17 06:45 Hemoglobin A1c 5.7 % (4.2-6.5) 10/19/17 20:49 Calcium 9.8 mg/dL (8.4-10.5) 10/21/17 06:45 Total Bilirubin 0.6 mg/dL (0.2-1.3) 10/21/17 06:45 AST 43 U/L (17-59) 10/21/17 06:45 ALT 67 U/L (7-56) H 10/21/17 06:45 Alkaline Phosphatase 62 U/L (38-126) 10/21/17 06:45 Lactate Dehydrogenase 582 U/L (333-699) 10/19/17 20:49 Total Creatine Kinase 155 U/L (35-230) 10/19/17 20:49 Troponin I < 0.01 ng/mL 10/19/17 20:49 Total Protein 7.7 g/dL (5.8-8.3) 10/21/17 06:45 Albumin 4.7 g/dL (3.0-4.8) 10/21/17 06:45 Globulin 3.0 gm/dL 10/21/17 06:45 Albumin/Globulin Ratio 1.5 (1.1-1.8) 10/21/17 06:45 Triglycerides 515 mg/dL (35-160) H 10/19/17 20:49 Cholesterol 227 mg/dL (130-200) H 10/19/17 20:49 LDL Cholesterol Direct 138 mg/dL (0-129) H 10/19/17 20:49 HDL Cholesterol 31 mg/dL (29-60) 10/19/17 20:49 Free T4 1.16 ng/dL (0.78-2.19) 10/19/17 20:49 TSH 3rd Generation 1.12 mIU/mL (0.46-4.68) 10/19/17 20:49 Urine Color Yellow (YELLOW) 10/19/17 20:49 Urine Appearance Clear (CLEAR) 10/19/17 20:49 Urine pH 6.5 (4.7-8.0) 10/19/17 20:49 Ur Specific [place] 1.010 (1.005-1.035) 10/19/17 20:49 Urine Protein Negative mg/dL (<30 mg/dL) 10/19/17 20:49 Urine Glucose (UA) Negative mg/dL (NEGATIVE) 10/19/17 20:49 Urine Ketones Negative mg/dL (NEGATIVE) 10/19/17 20:49 Urine Blood Negative (NEGATIVE) 10/19/17 20:49 Urine Nitrate Negative (NEGATIVE) 10/19/17 20:49 Urine Bilirubin Negative (NEGATIVE) 10/19/17 20:49 Urine Urobilinogen 0.2 E.U./dL (<1 E.U./dL) 10/19/17 20:49 Ur Leukocyte Esterase Negative Reilly/uL (NEGATIVE) 10/19/17 20:49 - Hospital Course Hospital Course: Patient is a 46 year old male with a PMHx of HLD, HTN, Anxiety, unspecified benign brain tumor (possible pituitary adenoma), and medication non-compliance who was admitted for evaluation and treatment of difficulty talking and neck/ head pressure. With the use of physical examinations, lab work, and imaging the patient was diagnosed with and treated for a TIA along with the patients chronic medical conditions. During their hospital stay the patient was seen by neurology (Dr. Khoury) and cardiology (Dr. Trent) and their recommendations were both appreciated and utilized in the care for this patient. During their hospital stay the patient underwent carotid dopplers, echocardiogram, MRI of brain with and without contrast, and head and neck CTA which were reviewed, appreciated, and utilized in the management of the patients clinical course. The carotid Dopplers revelaed bilateral 0-19 percent proximal ICA stenoses and antegrade flow in both vertebral arteries.The head and neck CTA was limited but the bilateral common and internal carotid arteries appear patent without gross stenosis and central otoe-missouria Boyce anatomy is patent as well. The mri of the brain without contrast was unremarkable pre and post contrast. Patient was treated with antihypertensive medications, statin, aspirin, plavix amongst other empiric/therapeutic medications. Physical therapy determined that he was not a candidate for skilled PT services. At this time the patient is medically stable for discharge. Patient understands and appreciates discharge plan. Patient instructed to follow up with primary care physicians and referrals within three to five days from discharge. Furthermore, the patient is instructed to take medications as prescribed and to return to emergency room for evaluation of intractable headache, fever, chills, dizziness, chest pain, shortness of breath, abdominal pain, nausea, vomiting, diarrhea, constipation, and urinary symptoms. This is a brief summary of the patients hospital course. Please see patient chart for full details. Discharge Exam - Additional Findings Additional findings: - Constitutional Appears: Well, Non-toxic, No Acute Distress - Head Exam Head Exam: ATRAUMATIC, NORMAL INSPECTION, NORMOCEPHALIC - Eye Exam Eye Exam: EOMI, Normal appearance, PERRL. absent: Scleral icterus - ENT Exam ENT Exam: Mucous Membranes Moist, Normal Oropharynx - Neck Exam Neck exam: Negative for: Lymphadenopathy, Thyromegaly - Respiratory Exam Respiratory Exam: Clear to Auscultation Bilateral, NORMAL BREATHING PATTERN - Cardiovascular Exam Cardiovascular Exam: RRR, +S1, +S2. absent: JVD - GI/Abdominal Exam GI & Abdominal Exam: Normal Bowel Sounds, Soft. absent: Organomegaly, Tenderness - Extremities Exam Extremities exam: Positive for: normal capillary refill, normal inspection, pedal pulses present. Negative for: pedal edema - Neurological Exam Neurological exam: Patient is awake, alert, responds to verbal stimuli, answers questions appropriately, follows commands, and moves extremities past midline - Skin Skin Exam: Dry, Intact, Normal Color, Warm Discharge Plan - Discharge Medications Prescriptions: Aspirin [Aspirin Chewable] 81 mg PO DAILY #21 chew Atorvastatin [Lipitor] 40 mg PO DIN #21 tab Clopidogrel [Plavix] 75 mg PO DAILY #21 tab Magnesium Oxide [Mag-Ox] 400 mg PO BID 14 Days #28 tab - Follow Up Plan Condition: GOOD Disposition: HOME/ ROUTINE Patient education suggested?: Yes Instructions: Transient Ischemic Attack, Stroke, Controlling Your Blood Pressure Through Lifestyle, Hypertension (DC) Additional Instructions: Patient Instructions: Take medications as prescribed. Aspirin and plavix should be taken for 21 days after discharge. Follow up with PMD and referrals within three to five days from discharge. Follow up with Dr. Trent/Dr. Cardoso for loop recorder vs holter monitor. Follow up with Dr. Khoury for headaches. Return to the emergency room for evaluation of intractable headache, fever, chills, dizziness, chest pain, shortness of breath, abdominal pain, nausea, vomiting, diarrhea, constipation, and urinary symptoms. Referrals: Ag Cardoso MD [Staff Provider] - 10/26/17 Lazaro Khoury MD [Staff Provider] - Jayde Ramirez DO [Primary Care Provider] - <Winnie Butcher - Last Filed: 10/22/17 17:07> Provider - Provider Date of Admission: 10/19/17 22:35 Attending physician: Winnie Butcher MD Primary care physician: Jayde Ramirez DO Hospital Course - Lab Results Lab Results: Most Recent Lab Values WBC 9.5 10^3/ul (4.5-11.0) D 10/20/17 05:00 RBC 5.09 10^6/uL (3.5-6.1) 10/20/17 05:00 Hgb 16.0 g/dL (14.0-18.0) 10/20/17 05:00 Hct 44.6 % (42.0-52.0) 10/20/17 05:00 MCV 87.6 fl (80.0-105.0) 10/20/17 05:00 MCH 31.4 pg (25.0-35.0) 10/20/17 05:00 MCHC 35.9 g/dl (31.0-37.0) 10/20/17 05:00 RDW 13.1 % (11.5-14.5) 10/20/17 05:00 Plt Count 203 10^3/uL (120.0-450.0) 10/20/17 05:00 MPV 10.4 fl (7.0-11.0) 10/20/17 05:00 Gran % 62.2 % (50.0-68.0) 10/20/17 05:00 Lymph % (Auto) 28.4 % (22.0-35.0) 10/20/17 05:00 Greene % (Auto) 6.9 % (1.0-6.0) H 10/20/17 05:00 Eos % (Auto) 2.3 % (1.5-5.0) 10/20/17 05:00 Baso % (Auto) 0.2 % (0.0-3.0) 10/20/17 05:00 Gran # 5.88 (1.4-6.5) 10/20/17 05:00 Lymph # (Auto) 2.7 (1.2-3.4) 10/20/17 05:00 Greene # (Auto) 0.7 (0.1-0.6) H 10/20/17 05:00 Eos # (Auto) 0.2 (0.0-0.7) 10/20/17 05:00 Baso # (Auto) 0.02 K/mm3 (0.0-2.0) 10/20/17 05:00 PT 12.2 SECONDS (9.4-12.5) 10/19/17 20:49 INR 1.07 (0.93-1.08) 10/19/17 20:49 APTT 36.8 Seconds (25.1-36.5) H 10/19/17 20:49 Sodium 140 mmol/L (132-148) 10/21/17 06:45 Potassium 4.2 mmol/L (3.6-5.0) 10/21/17 06:45 Chloride 101 mmol/L (98-107) 10/21/17 06:45 Carbon Dioxide 24 mmol/L (21-33) 10/21/17 06:45 Anion Gap 20 (10-20) 10/21/17 06:45 BUN 18 mg/dL (7-21) 10/21/17 06:45 Creatinine 0.8 mg/dl (0.8-1.5) 10/21/17 06:45 Est GFR ( Amer) > 60 10/21/17 06:45 Est GFR (Non-Af Amer) > 60 10/21/17 06:45 Random Glucose 129 mg/dL (70-110) H 10/21/17 06:45 Hemoglobin A1c 5.7 % (4.2-6.5) 10/19/17 20:49 Calcium 9.8 mg/dL (8.4-10.5) 10/21/17 06:45 Total Bilirubin 0.6 mg/dL (0.2-1.3) 10/21/17 06:45 AST 43 U/L (17-59) 10/21/17 06:45 ALT 67 U/L (7-56) H 10/21/17 06:45 Alkaline Phosphatase 62 U/L (38-126) 10/21/17 06:45 Lactate Dehydrogenase 582 U/L (333-699) 10/19/17 20:49 Total Creatine Kinase 155 U/L (35-230) 10/19/17 20:49 Troponin I < 0.01 ng/mL 10/19/17 20:49 Total Protein 7.7 g/dL (5.8-8.3) 10/21/17 06:45 Albumin 4.7 g/dL (3.0-4.8) 10/21/17 06:45 Globulin 3.0 gm/dL 10/21/17 06:45 Albumin/Globulin Ratio 1.5 (1.1-1.8) 10/21/17 06:45 Triglycerides 515 mg/dL (35-160) H 10/19/17 20:49 Cholesterol 227 mg/dL (130-200) H 10/19/17 20:49 LDL Cholesterol Direct 138 mg/dL (0-129) H 10/19/17 20:49 HDL Cholesterol 31 mg/dL (29-60) 10/19/17 20:49 Free T4 1.16 ng/dL (0.78-2.19) 10/19/17 20:49 TSH 3rd Generation 1.12 mIU/mL (0.46-4.68) 10/19/17 20:49 Urine Color Yellow (YELLOW) 10/19/17 20:49 Urine Appearance Clear (CLEAR) 10/19/17 20:49 Urine pH 6.5 (4.7-8.0) 10/19/17 20:49 Ur Specific [place] 1.010 (1.005-1.035) 10/19/17 20:49 Urine Protein Negative mg/dL (<30 mg/dL) 10/19/17 20:49 Urine Glucose (UA) Negative mg/dL (NEGATIVE) 10/19/17 20:49 Urine Ketones Negative mg/dL (NEGATIVE) 10/19/17 20:49 Urine Blood Negative (NEGATIVE) 10/19/17 20:49 Urine Nitrate Negative (NEGATIVE) 10/19/17 20:49 Urine Bilirubin Negative (NEGATIVE) 10/19/17 20:49 Urine Urobilinogen 0.2 E.U./dL (<1 E.U./dL) 10/19/17 20:49 Ur Leukocyte Esterase Negative Reilly/uL (NEGATIVE) 10/19/17 20:49 Attending/Attestation - Attestation I have personally seen and examined this patient.: Yes I have fully participated in the care of the patient.: Yes I have reviewed all pertinent clinical information, including history, physical exam and plan: Yes Notes (Text): I have seen and examined the patient at bedside. Agree with the above note dictated by the resident. Discussed with the patient and consultants in detail. Plan was explained to the patient and his . Upon discharge patient will follow up with Dr James Donohue.
[2017-10-21 18:51] VITALS: PULSE 91
--- NOTE | 2017-10-21 19:46 | CARD ---
APPROVED REPORT EXAM: Two-dimensional and M-mode echocardiogram with Doppler and color Doppler. Surgery/Intervention CHEST PAIN, POSSIBLE CVA 2D DIMENSIONS Left Atrium (2D)3.7 (1.6-4.0cm)IVSd1.1 (0.7-1.1cm) LVDd5.4 (3.9-5.9cm)PWd1.3 (0.7-1.1cm) LVDs3.8 (2.5-4.0cm)FS (%) 30.6 % LVEF (%)57.5 (>50%) M-Mode DIMENSIONS Aortic Root3.90 (2.2-3.7cm)Aortic Cusp Exc.2.00 (1.5-2.0cm) Aortic Valve AoV Peak Moljksxb366.0cm/Ernie Peak GR.7mmHg Mitral Valve MV E Ivjkiswv85.6cm/sMV A Dsrzresl74.1cm/sE/A ratio1.1 TDI Lateral E' Peak V9.94cm/sMedial E' Peak V6.63cm/sE/Lateral E'7.3 E/Medial E'11.0 Pulmonary Valve PV Peak Gcdgxlfd63.3cm/sPV Peak Grad.4mmHg Tricuspid Valve TR Peak [id number]/sRAP [id number] Peak Gr.8mmHg [id number] LEFT VENTRICLE The left ventricle is normal size. There is normal left ventricular wall thickness. The left ventricular function is normal.EF-55-60% There is normal LV segmental wall motion. The left ventricular diastolic function is normal. No left ventricle thrombus noted on this study. There is no ventricular septal defect visualized. There is no left ventricular aneurysm. There is no mass noted in the left ventricle. RIGHT VENTRICLE The right ventricle is normal size. There is normal right ventricular wall thickness. The right ventricular systolic function is normal. ATRIA The left atrium size is normal. The right atrium size is normal. The interatrial septum is intact with no evidence for an atrial septal defect. AORTIC VALVE The aortic valve is thickened but opens well. The aortic valve is mildly sclerotic. No aortic regurgitation is present. There is no aortic valvular stenosis. There is no aortic valvular vegetation. MITRAL VALVE The mitral valve is thickened but opens well. Mitral regurgitation is trace. There is no mitral valve stenosis. There is no evidence of mitral valve prolapse. TRICUSPID VALVE The tricuspid valve leaflets are thickened , but open well. There is trace tricuspid regurgitation.RVSp-18 mmof hg. There is no tricuspid valve stenosis. There is no tricuspid valve prolapse or vegetation. PULMONIC VALVE The pulmonary valve is normal in structure. There is no pulmonic valvular regurgitation. There is no pulmonic valvular stenosis. GREAT VESSELS The aortic root is normal in size. The ascending aorta is normal in size. The pulmonary artery is normal. The IVC is normal in size and collapses >50% with inspiration. PERICARDIAL EFFUSION There is no pleural effusion. There is no pericardial effusion. <Conclusion> Normal chamber Size. EF-55-60%. Trace MR/Tr. RVSP-18 mmof hg.
== END 2017-10-21 18:09 | disposition home or self-care (01) ==
LOC: ED 19:54 → ERH 22:35 → UNDOADMOB 22:35 → ERH 10-20 10:13 → 3RSO 10-20 11:09 → ERH 10-20 11:09 → OBSVTOIN 10-20 12:29 → 3RSO 10-20 12:29 → ERH 10-20 12:29 → INTOOBSV 10-20 12:29 → UNDODISOB 10-21 18:09
PROVIDERS: ADMIT Internal Medicine; ATTEND Hospitalist
DX: G45.9 Transient cerebral ischemic attack, unspecified (principal); I10 Essential (primary) hypertension; E78.5 Hyperlipidemia, unspecified; F41.0 Panic disorder [episodic paroxysmal anxiety]; E78.00 Pure hypercholesterolemia, unspecified; G47.30 Sleep apnea, unspecified; J45.909 Unspecified asthma, uncomplicated; F17.210 Nicotine dependence, cigarettes, uncomplicated; E66.9 Obesity, unspecified; Z91.14 Patient's other noncompliance with medication regimen; Z86.011 Personal history of benign neoplasm of the brain; Z82.49 Family history of ischemic heart disease and other diseases of the circulatory system; G43.809 Other migraine, not intractable, without status migrainosus; Z88.8 Allergy status to other drugs, medicaments and biological substances; E78.1 Pure hyperglyceridemia; R07.89 Other chest pain; Z68.41 Body mass index [BMI] 40.0-44.9, adult; R47.01 Aphasia
CPT/HCPCS: 36415; 70450; 70496; 70498; 70553; 80053; 80061; 81003; 82550; 83036; 83615; 84439; 84443; 84484; 85025; 85027; 85610; 85730; 86850; 86900; 92610; 93005; 93306; 93880; 96365; 96372; 96375; 97116; 97161; 99285; A9579; G0378; G8978; G8979; G8980; G8996; G8997; G8998; J1100; J1650; J3475; Q9967